=== PATIENT | female | born 1955 | race Hispanic/Latino ===

== ENCOUNTER 2017-09-13 10:35 | Outpatient (CLI) | payer BC ==
--- NOTE | 2017-09-13 15:32 | Mammography Report ---
BILATERAL DIGITAL SCREENING MAMMOGRAM with CAD : 09/13/17 10:35:00 CLINICAL: Routine screening. COMPARISON:02/15/13 FINDINGS: The breasts are heterogeneously dense, which may obscure small masses. No mass, architectural distortion or suspicious calcifications. IMPRESSION: No mammographic evidence of malignancy. BI-RADS CATEGORY: 2 -- Benign RECOMMENDATION: Routine mammographic screening in one year. COMMENT: Patient follow-up letters are generated by our [employer] application.
== END 2017-09-13 10:36 | disposition home or self-care (01) ==
LOC: SPVWC 10:35
PROVIDERS: ATTEND Nurse Practitioner
DX: Z12.31 Encounter for screening mammogram for malignant neoplasm of breast (principal); Z87.891 Personal history of nicotine dependence
CPT/HCPCS: 77067

== ENCOUNTER 2019-10-01 13:14 | Outpatient (CLI) | payer BC, OTHER ==
--- NOTE | 2019-10-01 18:16 | Mammography Report ---
BILATERAL DIGITAL DIAGNOSTIC MAMMOGRAM WITH CAD -- 10/01/2019 LEFT LIMITED BREAST ULTRASOUND INDICATION: Patient reports that she had an area of palpable concern and focal pain in the left breas t as well as left nipple discharge, but she reports that the symptoms have since resolved. TECHNIQUE: Digital bilateral mammographic imaging was performed. Spot compression views were obtaine d. Limited ultrasound was performed. This examination was interpreted with the benefit of Computer- ded Detection (CAD) analysis. COMPARISON: Prior mammograms 09/13/2017 and 07/09/2013 FINDINGS: Breast Density: The breasts are heterogeneously dense, which may obscure small masses. MAMMOGRAPHIC FINDINGS: There is no evidence of dominant mass, suspicious calcifications or architectu ral distortion in either breast. There is a stable nodular density seen in the 3:00 position of the l eft breast, anterior depth, and a stable biopsy clip seen in the right breast. There has been no sign ificant change compared with the prior examinations. ULTRASOUND FINDINGS: Targeted ultrasound evaluation was performed of the area of interest. Targeted ultrasound of the subareolar left breast reveals benign duct ectasia. No intraductal mass is identif ied. There is a 1.4 cm oval circumscribed hypoechoic mass versus complicated cyst seen in the left br east 3:00 position located 1 cm from the nipple; this has been stable mammographically dating back to at least 2013 compatible with a benign etiology. An incidental benign intramammary lymph node is see n in the 10:00 position of the left breast. No suspicious sonographic abnormality identified. IMPRESSION: 1. No suspicious mammographic or sonographic abnormality to account for previously reported area of p alpable concern, pain, and left nipple discharge, therefore clinical correlation is recommended. Follow up recommendation: Routine yearly BI-RADS Category 2: Benign. A "normal" or negative report should not discourage follow up or biopsy of a clinically significant f inding. A written summary of these findings will be mailed to the patient. The patient will be entered into a mammography reporting system which will generate a reminder letter for the patient's next appointmen t at the appropriate interval. According to the [employer], yearly mammograms are recommended starting at age 40 and continuing as long as a woman is in good health. Breast MRI is recommended for women with an stefano roximately 20-25% or greater lifetime risk of breast cancer, including women with a strong family his tory of breast or ovarian cancer and women who have been treated for Hodgkin's disease. Signer Name: Casandra Finn MD Signed: 10/01/2019 6:11 PM Workstation Name: [id number]
== END 2019-10-01 13:15 | disposition home or self-care (01) ==
LOC: MAMMO 13:14
PROVIDERS: ATTEND Internal Medicine
DX: N60.42 Mammary duct ectasia of left breast (principal); N63.42 Unspecified lump in left breast, subareolar; R59.0 Localized enlarged lymph nodes
CPT/HCPCS: 77066

== ENCOUNTER 2019-11-21 10:45 | Outpatient (CLI) | payer BC ==
--- NOTE | 2019-11-21 12:27 | Magnetic Resonance Report ---
MRI ABDOMEN WITHOUT AND WITH CONTRAST INDICATION / CLINICAL INFORMATION: ABNORMAL TEST RESULTS R92.8. Liver lesions TECHNIQUE: Multiplanar, multisequence series were obtained through the abdomen. Postcontrast imaging following 1 8 cc of MultiHance intravenously. COMPARISON: Correlation is made with the MRI breast report dated 10/25/2019 FINDINGS: LIVER: The liver is normal size and contour. There are multiple nonenhancing and slightly lobulated c ysts throughout the liver. The largest lesion measures 4.8 cm in the anterior right hepatic lobe. Pastor roximately 15-20 liver cysts are identified. No suspicious liver mass or significant parenchymal lung disease. GALLBLADDER: There is a large gallstone in the gallbladder measuring up to 3.9 x 2.4 cm. No biliary d ilatation or wall thickening. The common bile duct is unremarkable. PANCREAS: No significant abnormality. SPLEEN: No significant abnormality. ADRENALS: No significant abnormality. RIGHT KIDNEY AND URETER: No significant abnormality. LEFT KIDNEY AND URETER: No significant abnormality. STOMACH AND VISUALIZED BOWEL: No significant abnormality. PERITONEUM: No free fluid. No free air. No fluid collection. LYMPH NODES: No significant adenopathy. AORTA and ARTERIES: No significant abnormality. IVC and VEINS: No significant abnormality. ADDITIONAL FINDINGS: None. SKELETAL SYSTEM: No significant abnormality. IMPRESSION: Multiple liver cysts are identified as outlined above. No suspicious liver lesion or evidence for pa renchymal liver disease. Cholelithiasis. Signer Name: Albert Shaw Jr, MD Signed: 11/21/2019 12:23 PM Workstation Name: [id number]
== END 2019-11-21 10:46 | disposition home or self-care (01) ==
LOC: SPVIMAG 10:45
PROVIDERS: ATTEND Surgery
DX: K76.89 Other specified diseases of liver (principal); R92.8 Other abnormal and inconclusive findings on diagnostic imaging of breast
CPT/HCPCS: 74183; A9577

== ENCOUNTER 2020-09-03 10:24 | Outpatient (CLI) | payer BC | END 2020-09-03 10:25 | disposition home or self-care (01) | LOC: SPVWC 10:24 | DX: N60.42 Mammary duct ectasia of left breast (principal); N64.52 Nipple discharge ==